=== PATIENT | female | born 1930 | race Caucasian/White ===

== ENCOUNTER 2017-01-10 09:49 | Emergency (ER) | payer OTHER, MEDICARE, BC ==
[2017-01-10 10:31] VITALS: TEMP 97.8; O2SAT 100
[2017-01-10 10:55] LABS: BASOPHILS % (AUTO) 1 % (0-3); EOSINOPHILS % (AUTO) 1 % (0-9); HEMATOCRIT 36 % (35-47); MEAN CORPUSCULAR HGB CONC 35.6 gm/dl (32.0-36.0); MEAN CORPUSCULAR VOLUME 94 fL (81-99); MONOCYTES % (AUTO) 5.3 % (0-12); NEUTROPHILS % (AUTO) 87.9 % (37-80)
[2017-01-10] MEDS ORDERED: POTASSIUM CHLORIDE 2 MEQ/ML 60 MEQ, LIDOCAINE HCL 1% MDV 2 ML in SODIUM CHLORIDE 0.9% 1... IV ONE (11:06)
[2017-01-10] MEDS ORDERED: LIDOCAINE HCL 1% MPF SOL ONE (11:07)
[2017-01-10] MEDS ORDERED: POTASSIUM CHLORIDE 2 MEQ/ML SOL IV ONE (11:07)
[2017-01-10 11:08] LABS: ALBUMIN 3.6 gm/dl (3.4-5.0); CALCIUM 8.9 mg/dl (8.5-10.1)
[2017-01-10 11:12] LABS: POTASSIUM 2.6 mMol/L (3.5-5.1)
[2017-01-10 11:12] LABS: APPEARANCE,URINE Slightly Cloudy; BILIRUBIN,URINE NEGATIVE (NEGATIVE); COLOR,URINE Light yellow; GLUCOSE, URINE (UA) NEGATIVE (NEGATIVE); KETONES,URINE NEGATIVE (NEGATIVE); LEUKOCYTE ESTERASE ,URINE 2+ (NEGATIVE); NITRATE,URINE NEGATIVE (NEGATIVE); OCCULT BLOOD,URINE TRACE LYSED (NEG-TRACE); PH,URINE 7.5; UROBILINOGEN,URINE 0.2 (0.2-1.0 EU)
[2017-01-10 11:31] LABS: WBC,URINE 20-25 (0-5AV/HPF)
[2017-01-10] MEDS ORDERED: LEVOFLOXACIN 500 MG TAB PO SCH (12:15)
[2017-01-10] MEDS ORDERED: LEVOFLOXACIN 500 MG TAB ONE (12:21)
[2017-01-10 13:05] VITALS: BP 186/87; PULSE 108; RESP 21
== END 2017-01-10 12:55 | disposition short-term general hospital (02) | DRG 552 ==
LOC: ED 09:49
DX: S12.500A Unspecified displaced fracture of sixth cervical vertebra, initial encounter for closed fracture (principal); N39.0 Urinary tract infection, site not specified; V43.52XA Car driver injured in collision with other type car in traffic accident, initial encounter; Y92.411 Interstate highway as the place of occurrence of the external cause; Z79.01 Long term (current) use of anticoagulants; E87.6 Hypokalemia
CPT/HCPCS: 36415; 70450; 71010; 72125; 80053; 81001; 85025; 85610; 85730; 87088; 93005; 96365; 96366; 99285; 99291; J3480; L0130; A6232; A6402; J2001